=== PATIENT | female | born 1955 | race African-American/Black ===

== ENCOUNTER 2016-08-05 11:20 | Emergency (ER) | payer MEDICAID, OTHER ==
[~2016-08-05] VITALS: Ht 162.6 cm; Wt 54.4 kg
[~2016-08-05 11:20] MED LIST: AMLO10TA4 PO; BACL20TA PO; CLON0.2T PO; GABA100C PO; HYDR25TA4 PO; INTE0.3K3 SQ; TYLENOL #4 PO
--- NOTE | 2016-08-05 11:41 | NUR ---
Patient discharged to home in stable conditon. Written and verbal after care instructions given to patient. Patient verbalizes understanding of instructions.
== END 2016-08-05 11:47 | disposition home or self-care (01) ==
LOC: ER 11:25
DX: Z76.0 Encounter for issue of repeat prescription (principal); I10 Essential (primary) hypertension; Z88.0 Allergy status to penicillin; Z88.6 Allergy status to analgesic agent; F17.200 Nicotine dependence, unspecified, uncomplicated; K21.9 Gastro-esophageal reflux disease without esophagitis; J44.9 Chronic obstructive pulmonary disease, unspecified
CPT/HCPCS: 99283; A4663